=== PATIENT | female | born 1960 | race Caucasian/White ===

== ENCOUNTER 2019-04-19 07:24 | Inpatient (IN) | payer OTHER ==
[2019-04-15 17:44] LABS: BASOPHIL % 0.6 % (0-2); PLATELET COUNT 379 x10^3mcL (130-400); RED CELL DISTRIBUTION WIDTH 13.3 % (11.5-14.5)
[2019-04-15 18:11] LABS: ALBUMIN 3.8 g/dL (3.4-5.0); ALKALINE PHOSPHATASE 93 U/L (46-116); ALT/SGPT 48 U/L (14-59); AST/SGOT 17 U/L (15-37); CALCIUM 9.5 mg/dL (8.5-10.1); CARBON DIOXIDE 30.3 mmol/L (21-32); CHLORIDE SERUM 102 mmol/L (98-107); GFR1 > 60 mL/min; GLUCOSE SERUM 91 mg/dL (74-106); POTASSIUM SERUM 4.2 mmol/L (3.5-5.1); SODIUM SERUM 138 mmol/L (136-145)
[2019-04-15 18:12] LABS: TOTAL PROTEIN, SERUM 8.6 g/dL (6.4-8.2)
[~2019-04-19] VITALS: Ht 154.9 cm; Wt 77.1 kg
[2019-04-19 07:57] VITALS: BP 123/71
[2019-04-19 19:25] VITALS: BP 118/70
[2019-04-19 20:51] VITALS: BP 114/63
[2019-04-20 01:28] VITALS: BP 95/53
[2019-04-20 05:53] VITALS: BP 110/63
[2019-04-20 06:45] LABS: CALCIUM 8.4 mg/dL (8.5-10.1); CARBON DIOXIDE 28.9 mmol/L (21-32); CHLORIDE SERUM 105 mmol/L (98-107); CREATININE SERUM 0.7 mg/dL (0.6-1.0); GFR1 > 60 mL/min; GLUCOSE SERUM 106 mg/dL (74-106); POTASSIUM SERUM 4.2 mmol/L (3.5-5.1); SODIUM SERUM 139 mmol/L (136-145)
[2019-04-20 06:54] LABS: BASOPHIL % 0.2 % (0-2); PLATELET COUNT 325 x10^3mcL (130-400)
[2019-04-20 08:56] VITALS: BP 106/57
[2019-04-20 13:01] VITALS: BP 102/56
[2019-04-20] MEDS ORDERED: CEPHALEXIN500 M1 PO (15:17)
[2019-04-20] MEDS ORDERED: PERCOCET1 TAB PO (15:17)
== END 2019-04-20 16:41 | disposition home or self-care (01) | DRG 363 ==
LOC: MU 07:24
PROVIDERS: ADMIT Surgery
PROC: 07B60ZZ Excision of Left Axillary Lymphatic, Open Approach (ICD-10-PCS; 2019-04-19)
PROC: 0HBU0ZZ Excision of Left Breast, Open Approach (ICD-10-PCS; principal; 2019-04-19 15:30)
DX: D49.3 Neoplasm of unspecified behavior of breast (principal)
CPT/HCPCS: 88329; 88344; 88361; 90658; G0378; J0690; J1170; J2250; J2270; J3010; J3490; J7030; Q9968